=== PATIENT | female | born 1980 | race African-American/Black ===

== ENCOUNTER 2016-07-04 12:51 | Emergency (ER) | payer OTHER ==
[2016-07-04] MEDS ORDERED: Meclizine TAB* 12.5 MG PO ONE (14:47)
[2016-07-04 15:43] LABS: Hematocrit 42 % (35-47); Hemoglobin 13.4 g/dl (12.0-16.0); Mean Corpuscular HGB Conc 32 g/dl (31-36); Mean Corpuscular Hemoglobin 28 pg (27-31); Mean Corpuscular Volume 85 fL (80-97); Mean Platelet Volume 8 um3 (7.4-10.4); Red Blood Count 4.87 10^6/ul (4.0-5.4); Red Cell Distribution Width 12 % (10.5-15); White Blood Count 5.9 10^3/ul (3.5-10.8)
[2016-07-04 15:54] LABS: Urine Bacteria Absent (Absent); Urine Bilirubin Negative (Negative); Urine Glucose Negative (Negative); Urine Nitrite Negative (Negative)
[2016-07-04 15:59] LABS: ALT 10 U/L (7-52); Albumin 4.6 g/dL (3.2-5.2); Alkaline Phosphatase 66 U/L (34-104); BUN/Creatinine Ratio 14.5 (8-20); Blood Urea Nitrogen 10 mg/dL (6-24); CO2 Carbon Dioxide 26 mmol/L (22-32); Calcium 9.9 mg/dL (8.6-10.3); Chloride 103 mmol/L (101-111); Creatine Kinase 96 U/L (10-223); EGFR African American 123.8 (>60); EGFR Non-African American 96.3 (>60); Globulin 4.7 g/dL (2-4); Glucose 88 mg/dL (70-100); Magnesium 2.3 mg/dL (1.9-2.7); Sodium 137 mmol/L (133-145); Total Protein 9.3 g/dL (6.4-8.9)
[2016-07-04 16:33] LABS: TSH (Thyroid Stimulating Horm) 1.66 mcIU/mL (0.34-5.60)
[2016-07-04 17:14] VITALS: BP 144/72
--- NOTE | 2016-07-04 18:13 | ED ---
Pranay Hernández Matthew, scribed for Mookie Renee MD on 07/04/16 at 1537 . Dizziness - HPI Summary HPI Summary: A 35 y/o female presents to the ED with dizziness since 12:30. The dizziness started 5-10 minutes after taking her prescription medications and walking. The dizziness is described as the room spinning. She denies nausea, vomiting, headache, visual changes, chest pain, palpitations, diarrhea, constipation, dysuria, urinary frequency, ear pain, rhinorrhea, sinus, congestion, or recent illness. She's also c/o of right sided flank pain since two days ago that was described as sharp. Since onset that pain is no as severe, but she continues to have pain only with movement. No pain without movement. PMHx includes leaky heart valve, anxiety, depression, and heart catheterization. - History Of Current Complaint Chief Complaint: EDDizziness Stated Complaint: FLANK PAIN Time Seen by Provider: 07/04/16 14:36 Hx Obtained From: Patient Onset/Duration: Still Present Timing: Constant Severity Initially: Moderate Severity Currently: Moderate Character: Room Spinning Associated Signs And Symptoms: Positive: Negative - Allergies/Home Medications Allergies/Adverse Reactions: Allergies Allergy/AdvReac Type Severity Reaction Status Date / Time Sulfamethoxazole Allergy Severe Hives/Diff. Verified 07/04/16 13:00 w/Trimethoprim Breathing/I [From Bactrim] tching PMH/Surg Hx/FS Hx/Imm Hx Endocrine/Hematology History: Reports: Hx Anemia Cardiovascular History: Reports: Hx Valvular Heart Disease - mitral valve Denies: Hx Angina, Hx Coronary Artery Disease, Hx Hypercholesterolemia, Hx Hypertension, Hx Myocardial Infarction Respiratory History: Reports: Hx Asthma - Immunization History Date of Tetanus Vaccine: Unk Date of Influenza Vaccine: None Infectious Disease History: No Infectious Disease History: Denies: Hx Clostridium Difficile, Hx Hepatitis, Hx Human Immunodeficiency Virus (HIV), Hx of Known/Suspected MRSA, Traveled Outside the [place] in Last 30 Days - Family History Known Family History: Positive: None - Pt stated that she did not have any family Hx - Social History Alcohol Use: None Substance Use Type: Reports: None Smoking Status (MU): Never Smoked Tobacco Review of Systems Constitutional: Negative Eyes: Negative ENT: Negative Negative: Sore Throat, Ear Ache, Nasal Discharge Cardiovascular: Negative Negative: Chest Pain Respiratory: Negative Negative: Shortness Of Breath, Cough Positive: Abdominal Pain - right flank pain. Negative: Vomiting, Diarrhea, Nausea Genitourinary: Negative Negative: burning, dysuria, frequency Musculoskeletal: Negative Skin: Negative Neurological: Other - Dizziness Negative: Headache Psychological: Normal All Other Systems Reviewed And Are Negative: Yes Physical Exam - Summary Physical Exam Summary: VITAL SIGNS: Reviewed. GENERAL: Patient is a well developed and nourished femalewho is lying comfortable in the stretcher. Patient is not in any acute respiratory distress. HEAD AND FACE: No signs of trauma. No ecchymosis, hematomas or skull depressions. No sinus tenderness. EYES: PERRLA, EOMI x 2, No injected conjunctiva, no nystagmus. No photophobia. EARS: Hearing grossly intact. Ear canals and tympanic membranes are within normal limits. MOUTH: Oropharynx within normal limits. Poor dental hygiene, multiple teeth missing. NECK: Supple, trachea is midline, no adenopathy, no JVD, no carotid bruit, no c- spine tenderness, neck with full ROM. No meningeal signs, no Kernig's or brudzinskis signs. CHEST: Symmetric, no tenderness at palpation LUNGS: Clear to auscultation bilaterally. No wheezing or crackles. CVS: Regular rate and rhythm, S1 and S2 present, no murmurs or gallops appreciated. ABDOMEN: Soft, non-tender. No signs of distention. No rebound no guarding, and no masses palpated. Bowel sounds are normal. EXTREMITIES: FROM in all major joints, no edema, no cyanosis or clubbing. NEURO: Alert and oriented x 3. No acute neurological deficits. Speech is normal and follows commands. SKIN: Dry and warm Triage Information Reviewed: Yes Vital Signs On Initial Exam: Initial Vitals Temp Pulse Resp BP Pulse Ox 97.4 F 79 18 147/79 100 07/04/16 13:00 07/04/16 13:00 07/04/16 13:00 07/04/16 13:00 07/04/16 13:00 Vital Signs Reviewed: Yes Diagnostics - Vital Signs Vital Signs Temp Pulse Resp BP Pulse Ox 07/04/16 13:00 97.4 F 79 18 147/79 100 - Laboratory Result Diagrams: 07/04/16 15:30 07/04/16 17:10 Lab Statement: Any lab studies that have been ordered have been reviewed, and results considered in the medical decision making process. - EKG 18:03 Cardiac Rate: NL EKG Rhythm: Sinus Rhythm EKG Interpretation: TWI leads V2 and V3; No STEMI EKG Comparison: No Significant Change - 01/05/10 Dizzy Course/Dx - Course Assessment/Plan: A 35 y/o female presents to the ED with dizziness since 12:30. The dizziness started 5-10 minutes after taking her prescription medications and walking. The dizziness is described as the room spinning. She denies nausea , vomiting, headache, visual changes, chest pain, palpitations, diarrhea, constipation, dysuria, urinary frequency, ear pain, rhinorrhea, sinus, congestion, or recent illness. She's also c/o of right sided flank pain since two days ago that was described as sharp. Since onset that pain is no as severe , but she continues to have pain only with movement. No pain without movement. PMHx includes leaky heart valve, anxiety, depression, and heart catheterization. Blood work WNL, urinalysis negative for UTI. EKG shows no ST elevations or arrhythmia. The patient was given meclizine and after the symptoms resolved. She was overserved for a couple of hours in the ED and the symptoms did not return. The patient will be discharged home to follow-up with her PCP. I discussed all the findings and test results with the patient. Patient was instructed to return to the emergency room immediately if any of the symptoms return or worsens. Patient understands and agrees. Plan of care was discussed with the patient and patient understands and agrees with the plan of care. All questions were answered at patient satisfaction. There were no further complaints or concerns. Patient is alert and oriented x 3. Patient vital signs are stable. Patient is to follow up with primary care physician in the next 2 to 3 days. Patient understands and agrees. - Diagnoses Differential Diagnosis/HQI/PQRI: Labyrinthitis, Meniere's Disease, Medication Reaction, Other - BPV Provider Diagnoses: Vertigo Discharge - Discharge Plan Condition: Stable Disposition: HOME Prescriptions: Meclizine TAB* [Antivert 12.5 TAB*] 25 mg PO TID PRN #30 tab PRN Reason: Vertigo Patient Education Materials: Meclizine (By mouth), Vertigo (ED) Referrals: Zacarias Parson MD [Primary Care Provider] - 3 Days Additional Instructions: Please follow-up with your primary care physician in 3 days. The documentation as recorded by the Pranay padilla Matthew accurately reflects the service I personally performed and the decisions made by me, Mookie Renee MD.
== END 2016-07-04 18:21 | disposition home or self-care (01) ==
LOC: ED 12:51
DX: R42 Dizziness and giddiness (principal); I05.9 Rheumatic mitral valve disease, unspecified; Z88.2 Allergy status to sulfonamides
CPT/HCPCS: 36415; 80053; 81003; 81015; 82550; 83605; 83735; 84443; 84484; 84702; 85025; 86140; 87086; 93005; 99283; A9270-GY

== ENCOUNTER 2016-11-05 00:03 | Emergency (ER) | payer OTHER ==
[2016-11-05] MEDS ORDERED: Meclizine TAB* 12.5 MG PO ONE (00:58)
[2016-11-05] MEDS ORDERED: Meclizine TAB* 12.5 MG ONE (01:34)
[2016-11-05 01:38] LABS: Hematocrit 39 % (35-47); Hemoglobin 12.7 g/dl (12.0-16.0); Mean Corpuscular HGB Conc 33 g/dl (31-36); Mean Corpuscular Hemoglobin 28 pg (27-31); Mean Corpuscular Volume 86 fL (80-97); Mean Platelet Volume 8 um3 (7.4-10.4); Red Blood Count 4.54 10^6/ul (4.0-5.4); Red Cell Distribution Width 13 % (10.5-15); White Blood Count 11.2 10^3/ul (3.5-10.8)
[2016-11-05 01:40] LABS: Urine Bilirubin Negative (Negative); Urine Glucose Negative (Negative); Urine Nitrite Negative (Negative)
[2016-11-05 01:41] LABS: Add Diff/Slide Review? Slide Review Added; Comments Flag Yes
[2016-11-05 01:54] LABS: ALT 11 U/L (7-52); AST 9 U/L (13-39); Albumin 4.1 g/dL (3.2-5.2); Alkaline Phosphatase 59 U/L (34-104); Anion Gap 8 mmol/L (2-11); BUN/Creatinine Ratio 19.4 (8-20); Blood Urea Nitrogen 13 mg/dL (6-24); CO2 Carbon Dioxide 22 mmol/L (22-32); Calcium 10.1 mg/dL (8.6-10.3); Chloride 104 mmol/L (101-111); EGFR African American 127.4 (>60); Globulin 4.2 g/dL (2-4); Glucose 118 mg/dL (70-100); Potassium 3.9 mmol/L (3.5-5.0); Sodium 134 mmol/L (133-145); Total Protein 8.3 g/dL (6.4-8.9)
[2016-11-05 02:12] LABS: TSH (Thyroid Stimulating Horm) 1.99 mcIU/mL (0.34-5.60)
--- NOTE | 2016-11-05 02:55 | ED ---
nicholas Hernández Timothy, scribed for Damon Soler on 11/05/16 at 0037 . Dizziness - HPI Summary HPI Summary: Radha Vela is a 36 yo female presenting to [facility] with dizziness, jitteriness for the past day, with slight slurred speech. Per triage, Pt displays no slurred speech at this time. Moving hrehead from right to left robbins snot exacerbate her dizziness. She denies CP, SOB. She is not in any current pain. Her MHx includes cardia arrhythmia, valvular heart disease - mitral, cardiac catheterization, asthma, anemia. - History Of Current Complaint Chief Complaint: EDGeneral Stated Complaint: DIZZY/SLURRED SPEECH Time Seen by Provider: 11/05/16 00:30 Hx Obtained From: Patient Timing: Hours Severity Initially: Moderate Severity Currently: Moderate Character: Dizzy Associated Signs And Symptoms: Positive: Slurred Speech, Other: - jittery - Allergies/Home Medications Allergies/Adverse Reactions: Allergies Allergy/AdvReac Type Severity Reaction Status Date / Time Sulfamethoxazole Allergy Severe Hives/Diff. Verified 11/05/16 00:07 w/Trimethoprim Breathing/I [From Bactrim] tching PMH/Surg Hx/FS Hx/Imm Hx Endocrine/Hematology History: Reports: Hx Anemia Cardiovascular History: Reports: Hx Valvular Heart Disease - mitral valve Denies: Hx Angina, Hx Coronary Artery Disease, Hx Hypercholesterolemia, Hx Hypertension, Hx Myocardial Infarction Respiratory History: Reports: Hx Asthma - Immunization History Date of Tetanus Vaccine: Unk Date of Influenza Vaccine: None Infectious Disease History: No Infectious Disease History: Denies: Hx Clostridium Difficile, Hx Hepatitis, Hx Human Immunodeficiency Virus (HIV), Hx of Known/Suspected MRSA, Traveled Outside the in Last 30 Days - Family History Known Family History: Negative: Cardiac Disease, Hypertension, Diabetes - Social History Alcohol Use: None Substance Use Type: Reports: None Smoking Status (MU): Never Smoked Tobacco Review of Systems Constitutional: Negative Eyes: Negative ENT: Negative Cardiovascular: Negative Respiratory: Negative Gastrointestinal: Negative Genitourinary: Negative Musculoskeletal: Negative Skin: Negative Neurological: Other - dizziness, jitteriness Positive: Slurred Speech Psychological: Normal All Other Systems Reviewed And Are Negative: Yes Physical Exam Triage Information Reviewed: Yes Vital Signs On Initial Exam: Initial Vitals Temp Pulse Resp BP Pulse Ox 98.0 F 84 16 117/79 97 11/05/16 00:07 11/05/16 00:07 11/05/16 00:07 11/05/16 00:07 11/05/16 00:07 Vital Signs Reviewed: Yes Appearance: Positive: Well-Appearing, No Pain Distress, Well-Nourished Skin: Positive: Warm, Skin Color Reflects Adequate Perfusion, Dry Head/Face: Positive: Normal Head/Face Inspection Eyes: Positive: EOMI, ANCELMO ENT: Positive: Normal ENT inspection, Hearing grossly normal. Negative: Muffled /hoarse voice Neck: Positive: Supple, Nontender Respiratory/Lung Sounds: Positive: Clear to Auscultation, Breath Sounds Present Cardiovascular: Positive: RRR, Pulses are Symmetrical in both Upper and Lower Extremities Abdomen Description: Positive: Nontender, Soft Bowel Sounds: Positive: Present Musculoskeletal: Positive: Normal, Strength/ROM Intact Neurological: Positive: Normal, Sensory/Motor Intact, Alert, Oriented to Person Place, Time Psychiatric: Positive: Normal, Affect/Mood Appropriate Diagnostics - Vital Signs Vital Signs Temp Pulse Resp BP Pulse Ox 11/05/16 00:10 98.0 F 84 16 117/79 97 11/05/16 00:07 98.0 F 84 16 117/79 97 - Laboratory Result Diagrams: 11/05/16 01:25 11/05/16 01:25 Lab Statement: Any lab studies that have been ordered have been reviewed, and results considered in the medical decision making process. - Radiology CXR Xray Interpretation: No Acute Changes - No active cardiopulmonary disease Radiology Interpretation Completed By: ED Physician - CT Brain CT Interpretation: No Acute Changes - FINDING: No hemorrhage, mass, detectable infarct, shift or herniation, osseus structures are intact. CT Interpretation Completed By: Radiologist - Imaging correction officer - EKG 0110 Cardiac Rate: NL - 69 BPM EKG Interpretation: NSR @ 69 BPM, flipped T-waves. No change from 07/04/16 EKG Comparison: No Significant Change Dizzy Course/Dx - Course Assessment/Plan: Radha Vela is a 36 yo female presenting to [facility] with dizziniess, jitteriness for the past day, with slight slurred speech. Pt medication list reviewed this visit. In the ED course she received antivert. Her CXR suggests no active cardiopulmonary disease. Her Brain CT suggests no hemorrhage, mass, detectable infarct, shift or herniation, osseus structures are intact. After clinical examination and review ofher lab and imaging studies , she will be discharged home with dizziness with appropriate instructions and follow up. - Diagnoses Differential Diagnosis/HQI/PQRI: Other - dizziness Provider Diagnoses: Dizziness Discharge - Discharge Plan Condition: Stable Disposition: HOME Patient Education Materials: Dizziness (ED) Referrals: Zacarias Parson MD [Primary Care Provider] - 2 Days Additional Instructions: Please follow up with your primary care physician regarding your visit to the emergency department today. Return to the emergency department with any new or recurring symptoms. The documentation as recorded by the nicholas padilla Timothy accurately reflects the service I personally performed and the decisions made by , Damon Soler.
[2016-11-05 03:40] VITALS: BP 144/99
--- NOTE | 2016-11-05 07:46 | RAD ---
INDICATION: Dizziness. COMPARISON: Comparison is made with a prior chest x-ray study from August 17, 2015. TECHNIQUE: Dual-energy PA and lateral views of the chest were obtained. FINDINGS: The heart is within normal limits in size. Mediastinal and hilar contours appear within normal limits. The lungs are clear. No pleural effusion is present. IMPRESSION: NO EVIDENCE FOR ACTIVE CARDIOPULMONARY DISEASE.
--- NOTE | 2016-11-05 07:48 | RAD ---
INDICATION: Dizziness. COMPARISON: Comparison is made with a prior CT of the brain from October 13, 2014. TECHNIQUE: Contiguous axial sections of the brain were obtained from the skull base to the vertex without contrast. FINDINGS: The ventricles, cisterns and sulci are within normal limits. No significant focal abnormality or mass effect is seen. There is no evidence for hemorrhage. No significant focal osseous abnormality is seen. The visualized portion of the paranasal sinuses and mastoid air cells appear clear. IMPRESSION: NO EVIDENCE FOR GROSS ACUTE INFARCT, MASS EFFECT OR HEMORRHAGE.
== END 2016-11-05 03:45 | disposition home or self-care (01) ==
LOC: ED 00:03
DX: R07.9 Chest pain, unspecified (principal); R47.81 Slurred speech; R42 Dizziness and giddiness
CPT/HCPCS: 36415; 70450; 71020; 80053; 81003; 84443; 84484; 84702; 85025; 85610; 85730; 93005; 99283; A9270-GY

== ENCOUNTER 2019-05-14 15:33 | Emergency (ER) | payer OTHER ==
--- NOTE | 2019-05-14 17:11 | ED ---
Neck Pain - HPI Summary HPI Summary: Patient complains of left side neck pain radiating to left shoulder and arm status post mechanical fall tonight to go. Denies head injury, LOC, headache, and/V, vision change, altered mental status, imbalance, any other pain or injuries or symptoms. No anti-coag. - History of Current Complaint Chief Complaint: EDNeckComplaint Stated Complaint: NECK PAIN FROM FALL PER PT Time Seen by Provider: 05/14/19 17:09 Hx Obtained From: Patient Hx Last Menstrual Period: MID JULY Onset/Duration Of Injury/Symptoms: Days Mechanism Of Injury: Blunt Trauma Timing: Constant Onset/Duration: Gradual Onset, Started days ago Severity Initially: Moderate Severity Currently: Moderate Pain Intensity: 6 Pain Scale Used: 0-10 Numeric Character: Dull, Aching Aggravating Factors: Movement Alleviating Factors: Nothing Associated Signs & Symptoms: Positive: Negative - Allergies/Home Medications Allergies/Adverse Reactions: Allergies Allergy/AdvReac Type Severity Reaction Status Date / Time sulfamethoxazole Allergy Rash Verified 05/14/19 15:46 [From Bactrim] trimethoprim [From Bactrim] Allergy Rash Verified 05/14/19 15:46 PMH/Surg Hx/FS Hx/Imm Hx Endocrine/Hematology History: Reports: Hx Anemia Denies: Hx Diabetes Cardiovascular History: Reports: Hx Valvular Heart Disease - mitral valve Denies: Hx Angina, Hx Coronary Artery Disease, Hx Hypercholesterolemia, Hx Hypertension, Hx Myocardial Infarction Comment Only: Other Cardiovascular Problems/Disorders - HEART MURMUR Respiratory History: Reports: Hx Asthma History: Denies: Hx Renal Disease Sensory History: Denies: Hx Eye Prosthesis Opthamlomology History: Denies: Hx Legally Blind EENT History: Denies: Hx Deafness Neurological History: Denies: Hx Dementia - Immunization History Date of Tetanus Vaccine: Unk Date of Influenza Vaccine: None Infectious Disease History: No Infectious Disease History: Denies: Hx Clostridium Difficile, Hx Hepatitis, Hx Human Immunodeficiency Virus (HIV), Hx of Known/Suspected MRSA, Traveled Outside the [place] in Last 30 Days - Family History Known Family History: Positive: None - Pt stated that she did not have any family Hx Negative: Cardiac Disease, Hypertension, Diabetes - Social History Alcohol Use: None Substance Use Type: Reports: None Smoking Status (MU): Never Smoked Tobacco Review of Systems Constitutional: Negative Eyes: Negative ENT: Negative Cardiovascular: Negative Respiratory: Negative Gastrointestinal: Negative Genitourinary: Negative Musculoskeletal: Other Skin: Negative Neurological: Negative Psychological: Normal All Other Systems Reviewed And Are Negative: Yes Physical Exam - Summary Physical Exam Summary: Tenderness along left sternocleidal mastoid and trapezius muscles. PMS intact distally. 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 Triage Information Reviewed: Yes Vital Signs On Initial Exam: Initial Vitals Temp Pulse Resp BP Pulse Ox 98.6 F 125 19 136/82 98 05/14/19 15:42 05/14/19 15:42 05/14/19 15:42 05/14/19 15:42 05/14/19 15:42 Vital Signs Reviewed: Yes Appearance: Positive: Well-Appearing Skin: Positive: Warm Head/Face: Positive: Normal Head/Face Inspection Eyes: Positive: Normal Neck: Positive: Supple Respiratory/Lung Sounds: Positive: Clear to Auscultation Cardiovascular: Positive: Normal Abdomen Description: Positive: Nontender Musculoskeletal: Positive: Normal Neurological: Positive: Normal Psychiatric: Positive: Normal AVPU Assessment: Alert - Lakisha Coma Scale Best Eye Response: 4 - Spontaneous Best Motor Response: 6 - Obeys Commands Best Verbal Response: 5 - Oriented Coma Scale Total: 15 Procedures - Sedation Patient Received Moderate/Deep Sedation with Procedure: No Diagnostics - Vital Signs Vital Signs Temp Pulse Resp BP Pulse Ox 05/14/19 15:42 98.6 F 125 19 136/82 98 - Laboratory Lab Statement: Any lab studies that have been ordered have been reviewed, and results considered in the medical decision making process. Neck Course/Dx - Course Course Of Treatment: Patient complains of left side neck pain radiating to left shoulder and arm status post mechanical fall tonight to go. Denies head injury , LOC, headache, and/V, vision change, altered mental status, imbalance, any other pain or injuries or symptoms. No anti-coag. Vital signs within normal limits. - Diagnoses Provider Diagnoses: Muscle spasms of neck Discharge ED - Sign-Out/Discharge Documenting (check all that apply): Patient Departure - Discharge Plan Condition: Stable Disposition: HOME Prescriptions: Cyclobenzaprine TAB* [Flexeril 10 MG TAB*] 10 mg PO TID PRN 4 Days #12 tab PRN Reason: Spasms Diazepam TAB(*) [Valium TAB(*)] 5 mg PO BID 2 Days #4 tab MDD 2 tabs Patient Education Materials: Muscle Spasm (ED) Referrals: Zacarias Parson MD [Primary Care Provider] - Additional Instructions: Alternate ibuprofen 400 mg with Tylenol 650 mg every 3 hours for neck pain. Take Flexeril during the day as a medium strength muscle relaxer. Take Valium at night when you are home for muscle spasm. You should not be driving or operating machinery when taking Valium. Follow-up with primary care. Return to the ED for any new or worsening symptoms. - Billing Disposition and Condition Condition: STABLE Disposition: Home
[2019-05-14] MEDS ORDERED: Ibuprofen TAB* 600 MG PO ONE (17:58)
[2019-05-14] MEDS ORDERED: Cyclobenzaprine TAB* 10 MG PO ONE (17:58)
[2019-05-14 18:16] VITALS: BP 141/76
== END 2019-05-14 18:12 | disposition home or self-care (01) ==
LOC: ED 15:33
DX: M62.838 Other muscle spasm (principal); D64.9 Anemia, unspecified; Z88.1 Allergy status to other antibiotic agents; Z88.2 Allergy status to sulfonamides
CPT/HCPCS: 99282; A9270-GY

== ENCOUNTER 2019-10-24 13:03 | Inpatient (IN) ==
[2019-10-24] MEDS ORDERED: Lidocaine 1% VIAL 10 MG/ML VIAL ONE (13:14)
[2019-10-24] MEDS ORDERED: Heparin 2 UNITS/ML 1000 mls 1,000 ML IV ONE (13:14)
[2019-10-24] MEDS ORDERED: Iohexol 350 (CONTRAST) 200 ML MDV IV ONE ×3 (13:14→14:04)
[2019-10-24] MEDS ORDERED: VERAPAMIL 2.5 MG/ML 2 ML VIAL ** 5 mg/2 ml ONE (13:21)
[2019-10-24] MEDS ORDERED: Midazolam 5 mg/5 ml VIAL 1 mg/ml 5 ml VIAL (5 mg) ONE (13:23)
[2019-10-24] MEDS ORDERED: fentaNYL 100 mcg/2 ml 50 MCG/ML VIAL ONE (13:23)
[2019-10-24] MEDS ORDERED: Phenylephrine IV 10 MG/ML 1 ml VIAL ONE (14:42)
[2019-10-24] MEDS ORDERED: NS 0.9% 1000 ml BAG 1,000 ML IV SCH (14:45)
[2019-10-24] MEDS ORDERED: Heparin DRIP 25,000 UNITS(*) 0 UNITS/0 ML BAG ONE (14:47)
[2019-10-24] MEDS ORDERED: nitroGLYCERIN DRIP 25,000 MCG/250 ML BTL ONE (14:54)
[2019-10-24 15:47] LABS: ABS Lymphocytes 0.8 10^3/ul (1.0-4.8); ABS Monocytes 0.3 10^3/ul (0-0.8); Hematocrit 31 % (35-47); Lymphocyte % 4.1 %; Mean Corpuscular HGB Conc 32 g/dL (31-36); Mean Corpuscular Hemoglobin 27 pg (27-31); Mean Corpuscular Volume 82 fL (80-97); Platelet Count 482 10^3/uL (150-450); Red Blood Count 3.78 10^6 /uL (3.70-4.87); Red Cell Distribution Width 14 % (10-15)
[2019-10-24 16:33] LABS: ALT 9 U/L (7-52); AST 22 U/L (13-39); Albumin 3.8 g/dL (3.2-5.2); Albumin/Globulin Ratio 0.8 (1-3); Alkaline Phosphatase 79 U/L (34-104); Anion Gap 9 mmol/L (2-11); BUN/Creatinine Ratio 14.3 (8-20); Blood Urea Nitrogen 10 mg/dL (6-24); CO2 Carbon Dioxide 20 mmol/L (22-32); Calcium 9.2 mg/dL (8.6-10.3); Chloride 101 mmol/L (101-111); EGFR African American 112.1 (>60); EGFR Non-African American 92.7 (>60); Glucose 109 mg/dL (70-100); Potassium 3.6 mmol/L (3.5-5.0); Sodium 130 mmol/L (135-145); Total Protein 8.8 g/dL (6.4-8.9)
[2019-10-24 21:48] LABS: HCG Pregnancy < 0.60 mIU/mL
[2019-10-24] MEDS: NS 0.9% 1000 ml BAG 1,000 ML IV SCH (22:22)
[2019-10-24 23:59] LABS: Troponin I 4.78 ng/mL (<0.03)
[2019-10-25 01:16] LABS: Urine Appearance Clear; Urine Bilirubin Negative (Negative); Urine Blood Negative (Negative); Urine Color Yellow; Urine Glucose Negative (Negative); Urine Ketones Negative (Negative); Urine Nitrite Negative (Negative); Urine Protein Negative (Negative); Urine Urobilinogen Negative (Negative)
[2019-10-25 01:51] LABS: Urine Specific Gravity > 1.050 (1.010-1.030)
[2019-10-25] MEDS ORDERED: NS 0.9% 1000 ml BAG 1,000 ML IV ONE (03:03)
[2019-10-25 05:22] LABS: ABS Lymphocytes 0.9 10^3/ul (1.0-4.8); ABS Monocytes 0.7 10^3/ul (0-0.8); Hematocrit 24 % (35-47); Hemoglobin 8.1 g/dL (12.0-16.0); Lymphocyte % 8.5 %; Mean Corpuscular HGB Conc 33 g/dL (31-36); Mean Corpuscular Hemoglobin 27 pg (27-31); Mean Corpuscular Volume 82 fL (80-97); Mean Platelet Volume 7.2 fL (7.4-10.4); Platelet Count 388 10^3/uL (150-450); Red Blood Count 2.97 10^6 /uL (3.70-4.87); Red Cell Distribution Width 14 % (10-15); White Blood Count 10.5 10^3/uL (3.5-10.8)
[2019-10-25 05:39] LABS: ALT 16 U/L (7-52); AST 60 U/L (13-39); Albumin 3.1 g/dL (3.2-5.2); Albumin/Globulin Ratio 0.7 (1-3); Alkaline Phosphatase 62 U/L (34-104); Anion Gap 7 mmol/L (2-11); BUN/Creatinine Ratio 13.3 (8-20); Blood Urea Nitrogen 8 mg/dL (6-24); CO2 Carbon Dioxide 20 mmol/L (22-32); Calcium 8.1 mg/dL (8.6-10.3); Chloride 107 mmol/L (101-111); Cholesterol 115 mg/dL; EGFR Non-African American 110.7 (>60); Globulin 4.2 g/dL (2-4); Glucose 109 mg/dL (70-100); HDL Cholesterol 23.3 mg/dL; LDL Cholesterol 71 mg/dL; Potassium 3.6 mmol/L (3.5-5.0); Sodium 134 mmol/L (135-145); Total Protein 7.3 g/dL (6.4-8.9); Triglycerides 105 mg/dL
[2019-10-25 05:43] LABS: Troponin I 9.95 ng/mL (<0.03)
[2019-10-25] MEDS ORDERED: Perflutren Lipid Microsphere 3 ML VIAL ONE (08:22)
[2019-10-25] MEDS: NS 0.9% 1000 ml BAG 1,000 ML IV SCH (11:25)
[2019-10-26] MEDS ORDERED: Ondansetron 4 mg VIAL 2 MG/ML 2 ml VIAL IV PRN (08:40)
[2019-10-26] MEDS ORDERED: diPHENhydraMINE IV 50 MG/ML 1 ml VIAL (BENADRYL) IV PRN (08:40)
[2019-10-26] MEDS ORDERED: Naloxone 0.4 mg VIAL 0.4 mg/ml 1 ml VIAL IV PRN ×2 (08:40→10:17)
[2019-10-26 08:47] LABS: ABS Lymphocytes 1.1 10^3/ul (1.0-4.8); ABS Monocytes 0.6 10^3/ul (0-0.8); Hematocrit 24 % (35-47); Hemoglobin 8.2 g/dL (12.0-16.0); Lymphocyte % 10.9 %; Mean Corpuscular HGB Conc 34 g/dL (31-36); Mean Corpuscular Hemoglobin 27 pg (27-31); Mean Corpuscular Volume 80 fL (80-97); Mean Platelet Volume 7.4 fL (7.4-10.4); Nucleated Red Blood Cells % 0.1; Platelet Count 396 10^3/uL (150-450); Red Blood Count 3.02 10^6 /uL (3.70-4.87); Red Cell Distribution Width 14 % (10-15); White Blood Count 10.2 10^3/uL (3.5-10.8)
[2019-10-26 09:03] LABS: Potassium 3.8 mmol/L (3.5-5.0)
[2019-10-26] MEDS ORDERED: Buffered Lidocaine 1% SYRIN 1 ml INTRADERM ONE (09:05)
[2019-10-26 09:24] LABS: BUN/Creatinine Ratio 6.8 (8-20); EGFR African American 105.2 (>60); EGFR Non-African American 86.9 (>60)
[2019-10-26] MEDS ORDERED: fentaNYL 100 mcg/2 ml 50 MCG/ML VIAL IV PRN (10:17)
[2019-10-26 11:11] VITALS: BP 127/69
== END 2019-10-26 14:45 | disposition home or self-care (01) | DRG 174 ==
LOC: ED 13:03 → CCHLCR 13:10 → CHICATH 13:10 → ICU 13:12 → MEDTELE 10-25 12:06
PROVIDERS: ADMIT Internal Medicine Cardiovascular Disease; ATTEND Internal Medicine Cardiovascular Disease

== ENCOUNTER 2019-12-15 10:47 | Inpatient (IN) ==
[2019-12-15 11:44] LABS: ABS Basophils 0.1 10^3/ul (0-0.2); ABS Lymphocytes 0.9 10^3/ul (1.0-4.8); ABS Monocytes 0.6 10^3/ul (0-0.8); ABS Neutrophils 14.6 10^3/ul (1.5-7.7); Hematocrit 28 % (35-47); Hemoglobin 8.7 g/dL (12.0-16.0); Lymphocyte % 5.4 %; Mean Corpuscular HGB Conc 31 g/dL (31-36); Mean Corpuscular Hemoglobin 23 pg (27-31); Mean Corpuscular Volume 74 fL (80-97); Mean Platelet Volume 8.2 fL (7.4-10.4); Platelet Count 464 10^3/uL (150-450); Red Blood Count 3.79 10^6 /uL (3.70-4.87); Red Cell Distribution Width 18 % (10-15); White Blood Count 16.1 10^3/uL (3.5-10.8)
[2019-12-15] MEDS ORDERED: Furosemide 40 mg/4 ml IV VIAL IV SLOW PU ONE (12:04)
[2019-12-15] MEDS ORDERED: Morphine 4 MG/ML VIAL (1 ml) IV ONE (12:27)
[2019-12-15 13:14] LABS: Activated Partial Thrombo Time 33.7 seconds (26.0-38.0); INR 1.55 (0.82-1.09)
[2019-12-15 13:16] LABS: Albumin 3.3 g/dL (3.2-5.2); CO2 Carbon Dioxide 22 mmol/L (22-32); Calcium 9.4 mg/dL (8.6-10.3); Chloride 100 mmol/L (101-111); Sodium 132 mmol/L (135-145)
[2019-12-15 13:22] LABS: ALT 6 U/L (7-52); Albumin/Globulin Ratio 0.6 (1-3); Alkaline Phosphatase 90 U/L (34-104); BUN/Creatinine Ratio 9.1 (8-20); Blood Urea Nitrogen 7 mg/dL (6-24); EGFR African American 100.5 (>60); Globulin 5.3 g/dL (2-4); Glucose 151 mg/dL (70-100); Total Protein 8.6 g/dL (6.4-8.9)
[2019-12-15 13:37] LABS: Troponin I 0.05 ng/mL (<0.03)
[2019-12-15 14:04] LABS: Anion Gap 10 mmol/L (2-11)
[2019-12-15 14:06] LABS: Potassium Redraw 4.3 mmol/L (3.5-5.0)
[2019-12-15 14:42] LABS: TSH Ultra Thyroid Stim Horm 0.22 mcIU/mL (0.34-5.60)
[2019-12-15] MEDS: Heparin 5000 UNITS/ML 1 mL VIAL SUBCUT SCH ×2 (14:45→21:10)
[2019-12-15] MEDS ORDERED: Furosemide 40 mg/4 ml IV VIAL IV ONE (15:38)
[2019-12-15] MEDS ORDERED: Lorazepam PYXIS KEY ONE (15:39)
[2019-12-15] MEDS ORDERED: Furosemide 40 mg/4 ml IV VIAL ONE (15:39)
[2019-12-15] MEDS ORDERED: LORazepam 2 mg VIAL 1 ml ONE (15:40)
[2019-12-15 15:59] LABS: ABS Lymphocytes 0.9 10^3/ul (1.0-4.8); ABS Monocytes 0.8 10^3/ul (0-0.8); ABS Neutrophils 15.6 10^3/ul (1.5-7.7); Hematocrit 27 % (35-47); Hemoglobin 8.6 g/dL (12.0-16.0); Lymphocyte % 5.4 %; Mean Corpuscular HGB Conc 31 g/dL (31-36); Mean Corpuscular Hemoglobin 23 pg (27-31); Mean Corpuscular Volume 74 fL (80-97); Mean Platelet Volume 8.2 fL (7.4-10.4); Nucleated Red Blood Cells % 0.1; Platelet Count 437 10^3/uL (150-450); Red Blood Count 3.71 10^6 /uL (3.70-4.87); Red Cell Distribution Width 17 % (10-15); White Blood Count 17.3 10^3/uL (3.5-10.8)
[2019-12-15 16:06] LABS: Troponin I 0.11 ng/mL (<0.03)
[2019-12-15] MEDS ORDERED: cefTRIAXone 1 gm/50 mL NS BAG 1 GM/50 ML BAG IVPB SCH (18:00)
[2019-12-15 18:12] LABS: Urine Appearance Clear; Urine Bilirubin Negative (Negative); Urine Blood Negative (Negative); Urine Color Yellow; Urine Glucose Negative (Negative); Urine Ketones Negative (Negative); Urine Nitrite Negative (Negative); Urine Protein Negative (Negative); Urine Specific Gravity 1.008 (1.010-1.030); Urine Urobilinogen Negative (Negative)
[2019-12-15] MEDS ORDERED: Metoprolol Tartrate 5 mg VIAL 5 ml VIAL (1 mg/ml) IV ONE (18:40)
[2019-12-15] MEDS ORDERED: Metoprolol Tartrate 5 mg VIAL 5 ml VIAL (1 mg/ml) IV PRN (19:11)
[2019-12-16 04:55] LABS: ABS Lymphocytes 1.8 10^3/ul (1.0-4.8); ABS Monocytes 0.9 10^3/ul (0-0.8); ABS Neutrophils 8.4 10^3/ul (1.5-7.7); Hematocrit 24 % (35-47); Hemoglobin 7.6 g/dL (12.0-16.0); Lymphocyte % 16.2 %; Mean Corpuscular HGB Conc 32 g/dL (31-36); Mean Corpuscular Hemoglobin 23 pg (27-31); Mean Corpuscular Volume 73 fL (80-97); Mean Platelet Volume 8.3 fL (7.4-10.4); Platelet Count 356 10^3/uL (150-450); Red Blood Count 3.27 10^6 /uL (3.70-4.87); Red Cell Distribution Width 17 % (10-15); White Blood Count 11.1 10^3/uL (3.5-10.8)
[2019-12-16] MEDS: Heparin 5000 UNITS/ML 1 mL VIAL SUBCUT SCH (05:03)
[2019-12-16 05:06] LABS: ALT 4 U/L (7-52); AST 11 U/L (13-39); Albumin/Globulin Ratio 0.6 (1-3); Alkaline Phosphatase 69 U/L (34-104); Anion Gap 8 mmol/L (2-11); BUN/Creatinine Ratio 12.2 (8-20); Blood Urea Nitrogen 10 mg/dL (6-24); CO2 Carbon Dioxide 26 mmol/L (22-32); Calcium 9.1 mg/dL (8.6-10.3); Chloride 98 mmol/L (101-111); EGFR African American 93.4 (>60); EGFR Non-African American 77.2 (>60); Globulin 4.9 g/dL (2-4); Glucose 139 mg/dL (70-100); Potassium 4.1 mmol/L (3.5-5.0); Sodium 132 mmol/L (135-145); Total Protein 7.9 g/dL (6.4-8.9)
[2019-12-16 07:56] LABS: Troponin I 0.09 ng/mL (<0.03)
[2019-12-16 12:12] VITALS: BP 91/65
== END 2019-12-16 12:31 | disposition short-term general hospital (02) ==
LOC: ED 10:47 → ICU 12:28
PROVIDERS: ADMIT Internal Medicine; ATTEND Internal Medicine